=== PATIENT | female | born 1945 | race Caucasian/White ===

== ENCOUNTER → 2019-07-30 | Outpatient (CLI) | payer MEDICARE, OTHER ==
--- NOTE | 2019-07-30 11:21 | KCIC ---
MR of the right shoulder HISTORY: Right shoulder pain, injury 2 weeks ago. TECHNIQUE: Routine multiplanar sequences are obtained. COMPARISON: None FINDINGS: Moderate motion degradation. FINDINGS: Acromioclavicular joint is mildly degenerative. Complete full-thickness rupture of the supraspinatus infraspinatus tendon. Retraction to about the superior labrum measuring 4.5 cm. Moderate to severe muscle atrophy. Partial subscapularis tendon tear. Mild subdeltoid bursal fluid. High riding humerus, contacts the undersurface of the acromion. Small glenohumeral joint effusion. Glenohumeral joint is mildly degenerative. Limited labrum exam due to motion degradation but no definite labral detachment. Biceps tendon is grossly intact. No acute fracture. No aggressive bone destruction. Fluid/hemorrhage tracks centrally along the infraspinatus and teres minor muscles. IMPRESSION: Large rotator cuff tear. Complete supraspinatus and infraspinatus tendon rupture with retraction and atrophy. Partial subscapularis tendon tear. Electronically signed by: Rl Meade MD (07/30/2019 11:18 AM) [id number]
== END ==
LOC: KCIC MRI 08:49
PROVIDERS: ATTEND Orthopaedic Surgery Hand Surgery
DX: S46.811A Strain of other muscles, fascia and tendons at shoulder and upper arm level, right arm, initial encounter (principal); M75.101 Unspecified rotator cuff tear or rupture of right shoulder, not specified as traumatic; X58.XXXA Exposure to other specified factors, initial encounter; Y93.89 Activity, other specified; Y92.89 Other specified places as the place of occurrence of the external cause; Y99.8 Other external cause status
CPT/HCPCS: 73221